=== PATIENT | female | born 1945 | race Caucasian/White ===

== ENCOUNTER 2022-10-13 13:55 | Outpatient (CLI) | payer MEDICARE, SELFPAY ==
--- NOTE | ~2022-10-13 | XR_ITS ---
XR abdomen/kub 1V DATE: 10/13/2022 14:29 INDICATION: Right ureteral stone TECHNIQUE: AP projection, 2 views COMPARISON: 07/04/2017 CT abdomen pelvis FINDINGS: Several oval calcifications measuring up to 8 mm overlie the lower aspect of the right nazario l silhouette. Differential diagnosis includes cholelithiasis. Approximately 4 x 8 mm calcification overlies the right pelvis. Right nephrolithiasis and possible di stal right ureteral calculus is suggested. Consider noncontrast CT abdomen pelvis examination for mor e definitive evaluation. No evidence of bowel obstruction. The psoas shadows are intact. No visceromegaly is evident. Abdominal aortic and bilateral common femoral artery calcification. Bilateral osteitis condensans ilii. Degenerative disc disease and mild levoscoliosis of the lumbar sp ine. IMPRESSION: Right abdominal and pelvic calcifications; consider noncontrast CT abdomen pelvis for mor e definitive evaluation. Reviewed, dictated and finalized at [facility]. Reviewed, dictated and finalized at location [facility]. IMPRESSION: Right abdominal and pelvic calcifications; consider noncontrast CT abdomen pelvis for more definitive evaluation.
== END 2022-10-13 13:56 | disposition home or self-care (01) ==
PROVIDERS: Visit Provider Urology
DX: N20.1 Calculus of ureter (principal)
CPT/HCPCS: 74018

== ENCOUNTER 2022-10-21 11:09 | Outpatient (CLI) | payer MEDICARE, OTHER, SELFPAY ==
--- NOTE | 2022-10-21 11:28 | ECG_ITS ---
Measurements Intervals [place] Rate: 74 P: 74 [place]: 168 QRS: -14 QRSD: 82 T: 3 QT: 350 QTc: 389 Interpretive Statements SINUS RHYTHM VOLTAGE CRITERIA FOR LVH ANTEROLATERAL INFARCT, AGE INDETERMINATE BASELINE ARTIFACT- I, II, III, AVR, AVL, AVF, V1-V6 ABNORMAL ECG NO PREVIOUS ECG AVAILABLE FOR COMPARISON Electronically Signed On 10-21-2022 12:02:33 CDT by Lee Nance D.O.
[2022-10-21 13:13] LABS: Prothrombin Time 13.1 Seconds (11.1-14.7)
[2022-10-21 13:14] LABS: Partial Thromboplastin Time 30.2 SECONDS (22.3-36.8)
== END 2022-10-21 11:10 | disposition home or self-care (01) ==
LOC: ANHSURGERY 11:14
PROVIDERS: Visit Provider Urology
DX: N20.0 Calculus of kidney (principal); I10 Essential (primary) hypertension; Z01.818 Encounter for other preprocedural examination; R94.31 Abnormal electrocardiogram [ECG] [EKG]
CPT/HCPCS: 36415; 85610; 85730; 87086; 93005

== ENCOUNTER 2022-10-29 00:49 | Day surgery (SDC) | payer MEDICARE, SELFPAY ==
[2022-10-15 10:07] VITALS: BMI 30.5
--- NOTE | 2022-10-15 10:19 | PC.NURSE ---
PRE-OP INSTRUCTIONS, PLEASE READ CAREFULLY Report to the Outpatient Waiting Room, entrance under the green pavilion located off [facility], at time _0630_ on date _10/29/22_. Planned Procedure Time: _0830_. Time changes happen often and if your time is changed the preop area will call you the afternoon before. - You and your visitor will be asked to self-screen and do not enter if you have any COVID symptoms. - Only one visitor is requested with a max of two and NO children visitors are allowed at this time. - The patient visitor may be requested to leave or wait in car when not with patient due to distancing restrictions. - A mask is optional within the hospital at this time. Patients may have clear liquids (water, carbonated beverages, clear teas, apple juice) until 3 hours prior to surgery (0530 AM) with a maximum of 20 ounces. - No food from midnight until time of surgery Take the following medications with a SIP of water the morning of surgery: _MEMANTINE, METOPROLOL_ DO NOT STOP ANY OF YOUR OTHER PRESCRIPTION MEDICATIONS PRIOR TO SURGERY ?EXCEPT THE FOLLOWING Medications to discontinue per PARRES - _VITAMINS, SUPPLEMENTS, ASPIRIN, DICLOFENAC 7 DAYS PRIOR TO SURGERY Date to take last dose_10/18/22_ Please no make-up, nail filipino, hairspray, perfume, deodorant, or body powder the day of surgery. No jewelry (including any body piercings) or valuables the day of surgery, leave them at home. Please take a shower or bath the night before, or the morning of, surgery with an antibacterial soap. Wear comfortable, loose fitting clothing. Children are encouraged to wear pajamas. - Jewelry must be removed prior to entering the operating room. Rings and piercings that are not removed may be cut off. - The hospital will not accept responsibility for valuables. - Please leave all valuables, including medications, at home the day of surgery. If you are going home after surgery, a licensed delivery driver assistant must drive you home. - NO public transportation without another adult if you receive anesthesia. - We recommend that an adult stay with you for 24 hours following discharge. - We also recommend that you do not drive, make important decision, drink alcoholic beverages, or take any drugs that were not prescribed by your health care provider for at least 24 hours after your discharge time. Follow any additional instructions given to you from your surgeon. If you or anyone in your household have experienced Covid symptoms in the past week, please notify your surgeon or the nurse liaison at the phone number below for possible testing. Telephone instructions given to _PATIENT & SPOUSE (JENAE)_and asked if any additional questions and then verbalized understanding. Patient advised to call surgeon office or pre surgery nurse liaison [phone] if any additional questions.
--- NOTE | 2022-10-19 09:07 | P.HP_ITS ---
History of Present Illness History of Present Illness Consent: Risks, benefits, and alternatives have been discussed and questions answered. Patient agrees to proceed with procedure. Chief complaint: right ureteral stones Narrative: Danielle Perkins is a 77 year old female recently presented with right flank pain not associated with nausea vomiting fevers or chills. Noncontrast CT scan abdomen pelvis reveals a 9 mm stone at the right UPJ with additional similar size stones in the right kidney. After discussion of therapeutic options including ESWL and percutaneous nephrolithotomy she elects for the former. She is aware the risk of this including, but not limited to, need for multiple procedures, need for additional procedures, hematuria and perinephric hematoma. Review of Systems Cardiovascular: Cardiovascular: Denies chest pain, Denies lightheadedness, Denies palpitations and Denies dyspnea Respiratory: Respiratory: Denies dyspnea Gastrointestinal: Gastrointestinal: Denies diarrhea, Denies nausea and Denies vomiting Genitourinary: Genitourinary: Denies hematuria and Denies dysuria Endocrine: Endocrine: Denies palpitations PMFSH Social History Social History Smoking packs per day: 1 Smoking cigarettes per day: 20.0 Years smoked: 30 Smoking pack-years: 30.00 Smoking status: Former smoker Tobacco type: cigarettes Second hand tobacco smoke exposure: No Smoking end date: 07/25/12 Alcohol intake: never Substance use: never Living arrangements: with family Spiritual care concerns: No Meds Home Medications and Allergies Home Medications Medication Instructions Recorded Confirmed Type aspirin 81 mg capsule 81 mg PO DAILY 10/15/22 10/15/22 History calcium carbonate 600 mg-vitamin 1 tablet PO DAILY 10/15/22 10/15/22 History D3 20 mcg (800 unit) chewable tablet (Caltrate 600 plus D) diclofenac sodium 75 mg 75 mg PO DAILY 10/15/22 10/15/22 History tablet,delayed release memantine 5 mg tablet 5 mg BID 10/15/22 10/15/22 History metoprolol succinate 25 mg 25 mg PO QAM 10/15/22 10/15/22 History tablet,extended release 24 hr multivitamin 1 tablet PO DAILY 10/15/22 10/15/22 History omeprazole 20 mg capsule,delayed 20 mg PO DAILY 10/15/22 10/15/22 History release trazodone 50 mg tablet 50 mg HS 10/15/22 10/15/22 History valacyclovir 1 gram tablet See Rx Instructions .Route .COMPLEX 10/15/22 10/15/22 History Allergies Allergy/AdvReac Type Severity Reaction Status Date / Time nickel Allergy Unknown Itching Verified 10/15/22 10:00 Penicillins Allergy Unknown Hives / Verified 10/15/22 10:00 Red Face Assessment and Plan Assessment and plan (1) Right renal stone: Code(s): N20.0 - Calculus of kidney Status: Acute Assessment and Plan: * cystoscopy, right ureteral stent placement, right ESWL
--- NOTE | 2022-10-28 16:34 | WPDANESEPPF ---
Anes - Initial Pre Proc Eval Procedure: Operation Date: 10/29/22 08:30 Proposed Procedures p Right Extracorporeal Shock Wave Lithotripsy - Azar Rodriguez MD Date/Time: 10/28/22 16:34 Surgeon: Azar Rodriguez MD Pre Op Diagnosis: right ureteral stones Patient Data Age: 77 Gender: F Height: 1.61 m Weight: 79.54 kg Allergies Allergy/AdvReac Type Severity Reaction Status Date / Time nickel Allergy Unknown Itching Verified 10/15/22 10:00 Penicillins Allergy Unknown Hives / Verified 10/15/22 10:00 Red Face Home Medications Medication Instructions Recorded Confirmed Type aspirin 81 mg capsule 81 mg PO DAILY 10/15/22 10/15/22 History calcium carbonate 600 mg-vitamin 1 tablet PO DAILY 10/15/22 10/15/22 History D3 20 mcg (800 unit) chewable tablet (Caltrate 600 plus D) diclofenac sodium 75 mg 75 mg PO DAILY 10/15/22 10/15/22 History tablet,delayed release memantine 5 mg tablet 5 mg BID 10/15/22 10/15/22 History metoprolol succinate 25 mg 25 mg PO QAM 10/15/22 10/15/22 History tablet,extended release 24 hr multivitamin 1 tablet PO DAILY 10/15/22 10/15/22 History omeprazole 20 mg capsule,delayed 20 mg PO DAILY 10/15/22 10/15/22 History release trazodone 50 mg tablet 50 mg HS 10/15/22 10/15/22 History valacyclovir 1 gram tablet See Rx Instructions .Route .COMPLEX 10/15/22 10/15/22 History ECG: Date of Service: 10/21/22 Procedure(s): CA 12 lead EKG Accession Number(s): [id number] cc: ~ ? Measurements Intervals? [place]? Rate: ? 74 ? P:? 74 [place]: ? 168? QRS:? -14 QRSD: ? 82 ? T:? 3 QT: ? 350? QTc:? 389? Interpretive Statements SINUS RHYTHM VOLTAGE CRITERIA FOR LVH ANTEROLATERAL INFARCT, AGE INDETERMINATE BASELINE ARTIFACT- I, II, III, AVR, AVL, AVF, V1-V6 ABNORMAL ECG NO PREVIOUS ECG AVAILABLE FOR COMPARISON Electronically Signed On 10-21-2022 12:02:33 CDT by Lee Nance D.O. Patient hx anesthesia problems: none Family hx anesthesia problems: none Results Review: All pre-operative results and documents have been reviewed as part of the pre-operative evaluation. [facility] Past Medical History Medical History (Updated 10/28/22 @ 16:35 by Ozzy Pittman MD) Alzheimer disease Arthritis Chronic GERD HTN (hypertension) Obesity Social History Social History Smoking packs per day: 1 Smoking cigarettes per day: 20.0 Years smoked: 30 Smoking pack-years: 30.00 Smoking status: Former smoker Tobacco type: cigarettes Second hand tobacco smoke exposure: No Smoking end date: 07/25/12 Alcohol intake: never Substance use: never Living arrangements: with family Spiritual care concerns: No Anes - Eval Final PreProcedure Day of Procedure 10/28/22 16:34 Patient weight: obese Heart: regular rate and rhythm Lungs: clear to auscultation and normal air movement Airway: Mallampati scale class II Neurological: alert and oriented Last oral intake: >/= 8 hours ASA classification: III Emergent: no Anesthetic plan: proceed Anesthesia type and monitoring: general LMA Results Review: All pre-operative results and documents have been reviewed as part of the pre-operative evaluation. Informed Consent: The patient's anesthetic plan and its attendant risks and benefits were discussed with the patient/family/POA. Questions were solicited and answers provided to the satisfaction of the patient/family/POA.
--- NOTE | ~2022-10-29 | XR_ITS ---
EXAMINATION: XR abdomen/kub 1V INDICATION: Right ureteral stone TECHNIQUE: Supine views of the abdomen were obtained on 2 radiographs. COMPARISON: 10/13/2022 FINDINGS: There are three stones of the right kidney lower pole measuring up to 7 mm. There are phleb oliths in the right pelvis. The bowel gas pattern is normal. The visualized lung bases are clear. The re is mild osteoarthritis of the hips. Osteitis pubis is noted. IMPRESSION: 1. Right nephrolithiasis. Reviewed, dictated and finalized at location [facility]. IMPRESSION: 1. Right nephrolithiasis.
--- NOTE | 2022-10-29 05:34 | WPDHPUPDATE1 ---
History and Physical Update Update Date/Time: 10/29/22 05:34 History and Physical has been reviewed, including an updated exam of the patient. There are NO changes in the patient's condition. Risks, benefits, and alternatives have been discussed and questions answered. Patient agrees to proceed with procedure.
[2022-10-29 08:12] VITALS: BP 166/86; PULSE 80; RESP 14; TEMP 36.5; O2SAT 99
[2022-10-29] MEDS: LACTATED RINGERS 1,000 ML 30 ML IV CONT (08:15)
[2022-10-29] MEDS: ceFAZolin 2 GM/D5W 50 ML 2 GM/50 ML BAG IVPB (08:29)
--- NOTE | 2022-10-29 08:43 | P.OP_ITS ---
Procedure Note - Detailed Date of Procedure 10/29/22 Pre-op Diagnosis Right renal stones Post-op Diagnosis Same Procedure Performed Right ESWL Surgeon Azar Rodriguez MD Anesthesia General Description of Procedure The patient was brought to the operative suite where she was placed in the supine position on the Dornier lithotripsy table. The focal point of the lithotripter was placed at two contiguous stones measuring, in aggregate, 9- 10mm. A total of 2500 shocks were delivered at a power setting of 4. There appeared to be good fragmentation of the stone. The patient tolerated the procedure well and was taken to the recovery room in good condition. Drains No Packing No Pathology None sent Complications No immediate complications Disposition PACU
[2022-10-29 09:15] VITALS: BP 124/55; PULSE 66; RESP 20; TEMP 36.6; O2SAT 99
[2022-10-29 09:29] VITALS: BP 140/57; PULSE 62; RESP 22; O2SAT 100
[2022-10-29 09:44] VITALS: BP 143/99; PULSE 60; RESP 18; O2SAT 96
[2022-10-29 09:47] VITALS: BP 146/68; PULSE 60; RESP 18
[2022-10-29 10:15] VITALS: BP 129/74; PULSE 60; RESP 18
== END 2022-10-29 10:49 | disposition home or self-care (01) ==
PROVIDERS: Visit Provider Urology
PROC: (CPT 50590; principal; 2022-10-29 08:30)
DX: N20.0 Calculus of kidney (principal); I10 Essential (primary) hypertension; K21.9 Gastro-esophageal reflux disease without esophagitis; G30.9 Alzheimer's disease, unspecified; F02.80 Dementia in other diseases classified elsewhere, unspecified severity, without behavioral disturbance, psychotic disturbance, mood disturbance, and anxiety; Z87.891 Personal history of nicotine dependence; E66.9 Obesity, unspecified; Z68.29 Body mass index [BMI] 29.0-29.9, adult; Z79.82 Long term (current) use of aspirin
CPT/HCPCS: 50590; 74018; J0690; J1100; J2405; J2704; J3010; J7120

== ENCOUNTER 2022-11-10 13:12 | Outpatient (CLI) | payer MEDICARE, SELFPAY ==
--- NOTE | ~2022-11-10 | XR_ITS ---
XR abdomen/kub 1V 11/10/2022 13:30 INDICATION: Right ureteral stone TECHNIQUE: KUB COMPARISON: None FINDINGS: Bowel gas pattern is normal. There is no evidence of free air, mass, organomegaly, ascites or obstruction. No abnormal calculi are seen. The bones appear intact. IMPRESSION: 1: No acute abdominal abnormality identified. Reviewed, dictated and finalized at location A.
== END 2022-11-10 13:13 | disposition home or self-care (01) ==
LOC: ANHIMG 13:17
PROVIDERS: Visit Provider Urology
DX: N20.1 Calculus of ureter (principal)
CPT/HCPCS: 74018